=== PATIENT | female | born 1965 | race Caucasian/White ===

== ENCOUNTER 2021-11-10 06:44 | Day surgery (SDC) | payer OTHER, SELFPAY ==
[~2021-11-10] VITALS: Ht 157.5 cm; Wt 68.0 kg
[2021-11-10] MEDS ORDERED: LIDOCAINE 2% 100 MG/5 ML UJET TP ONE (07:26)
[2021-11-10] MEDS ORDERED: fentaNYL citrate 0.05 MG/ML VIAL ONE (07:26)
[2021-11-10] MEDS ORDERED: MIDAZOLAM 5 MG/5 ML VIAL ONE (07:26)
[2021-11-10] MEDS ORDERED: fentaNYL citrate 0.05 MG/ML VIAL IVP ONE (09:30)
[2021-11-10] MEDS ORDERED: MIDAZOLAM 2 MG/2 ML VIAL IVP ONE (09:30)
== END 2021-11-10 10:20 | disposition home or self-care (01) ==
LOC: MLB 06:44 → MMU 06:46 → MLB 10:20
PROVIDERS: ATTEND Surgery
DX: R10.30 Lower abdominal pain, unspecified (principal); I10 Essential (primary) hypertension; Z90.710 Acquired absence of both cervix and uterus; Z79.899 Other long term (current) drug therapy; Z20.822 Contact with and (suspected) exposure to COVID-19
CPT/HCPCS: 45378; 87426; J2250; J3010

== ENCOUNTER 2022-03-29 06:49 | Day surgery (SDC) | payer OTHER ==
[~2022-03-29] VITALS: Ht 157.5 cm; Wt 70.8 kg
[2022-03-29] MEDS ORDERED: diphenhydrAMINE 50 MG/ML VIAL ONE (07:57)
[2022-03-29] MEDS ORDERED: fentaNYL citrate 0.05 MG/ML VIAL ONE (07:57)
[2022-03-29] MEDS ORDERED: LIDOCAINE 2% 100 MG/5 ML UJET TP ONE (07:58)
[2022-03-29] MEDS ORDERED: MIDAZOLAM 5 MG/5 ML VIAL ONE (07:58)
[2022-03-29] MEDS ORDERED: fentaNYL citrate 0.05 MG/ML VIAL IVP ONE (12:25)
[2022-03-29] MEDS ORDERED: MIDAZOLAM 2 MG/2 ML VIAL IVP ONE (12:25)
== END 2022-03-29 09:46 | disposition home or self-care (01) ==
LOC: MDS 06:49 → MMU 06:49 → MDS 09:46
PROVIDERS: ATTEND Internal Medicine Gastroenterology
DX: Z12.11 Encounter for screening for malignant neoplasm of colon (principal); K57.20 Diverticulitis of large intestine with perforation and abscess without bleeding; I10 Essential (primary) hypertension; Z90.49 Acquired absence of other specified parts of digestive tract; Z90.710 Acquired absence of both cervix and uterus; Z90.89 Acquired absence of other organs; Z90.722 Acquired absence of ovaries, bilateral; Z88.0 Allergy status to penicillin; Z88.8 Allergy status to other drugs, medicaments and biological substances; Z79.899 Other long term (current) drug therapy; Z20.822 Contact with and (suspected) exposure to COVID-19
CPT/HCPCS: 45380; 87426; J2250; J3010; J1200